=== PATIENT | male | born 1995 | race Caucasian/White ===

== ENCOUNTER 2018-05-25 15:54 | Emergency (ER) | payer OTHER ==
[~2018-05-25] VITALS: Ht 177.8 cm; Wt 81.7 kg
[~2018-05-25 15:54] MED LIST: ALBU90OI; ALBU90OI INH; AMOCLA500 PO; ARIP10 PO; ATOM60 PO; AZIT200SU; CEPH250SUA PO; CODACEE120 PO; FLUT44OIA; GUAN1; METPHE10; MONT5TCH PO; PRED15SY PO; PRED20 PO; RXAZITHSU PO; SERT25; TENEX PO; [UNRECOGNIZED DRUG - REMARK]
== END 2018-05-25 17:00 | disposition home or self-care (01) ==
LOC: ER 15:54
DX: S60.222A Contusion of left hand, initial encounter (principal); W22.8XXA Striking against or struck by other objects, initial encounter
CPT/HCPCS: 73130; 99283-25